=== PATIENT | female | born 1950 | race Caucasian/White ===

== ENCOUNTER → 2017-02-20 | Outpatient (CLI) | payer OTHER ==
[2014-03-15 11:17] VITALS: BP 103/57
--- NOTE | 2017-02-21 15:29 | MG ---
HISTORY: SCREENING Comparison: January 31, 2015 and February 05, 2016 FINDINGS: Bilateral CC and MLO projections of the right and left breast were obtained. Scattered fibroglandul ar tissue is seen to be present without significant interval change. No suspicious architectural di stortion, mass or clustered microcalcifications can be observed to suggest malignancy. No skin thic kening or nipple retraction is appreciated. No pathological lymphadenopathy can be identified. Kash ign-appearing calcifications are noted within the right and left breast. IMPRESSION: NO RADIOGRAPHIC EVIDENCE OF MALIGNANCY. ACR CATEGORY 2 - benign findings. FOLLOW-UP EXAM 1 YEAR. Diagnostic CAD was utilized and reviewed. * 0 (ZERO) - ASSESSMENT INCOMPLETE; ADDITIONAL IMAGING IS NEEDED. * 1/1 (ONE) - NEGATIVE. * 2/II (TWO) - BENIGN FINDINGS. * 3/III (THREE) - PROBABLY BENIGN FINDING; SHORT INTERVAL FOLLOW-UP SUGGESTED. * 4/IV (FOUR) - SUSPICIOUS ABNORMALITY; BIOPSY SHOULD BE CONSIDERED. * 5/V (FIVE) - HIGHLY SUSPICIOUS OF MALIGNANCY; BIOPSY SHOULD BE PERFORMED. A NEGATIVE X-RAY REPORT SHOULD NOT DELAY BIOPSY IF A DOMINANT OR CLINICALLY SUSPICIOUS MASS IS PRESENT; 4 TO 8 PERCENT OF CANCERS ARE NOT IDENTIFIED BY X-RAY. A NEG ATIVE REPORT MAY REINFORCE THE CLINICAL IMPRESSION. ADENOSIS AND DENSE BREASTS MAY OBSCURE AN UNDER LYING NEOPLASM. Reported By:
== END ==
LOC: RAD 10:22
PROVIDERS: ATTEND Obstetrics & Gynecology Obstetrics
DX: Z12.31 Encounter for screening mammogram for malignant neoplasm of breast (principal)
CPT/HCPCS: 77067

== ENCOUNTER 2017-12-12 14:09 | Emergency (ER) | payer OTHER ==
[2017-12-12 14:15] VITALS: BP 188/82; BMI 46.7
[2017-12-12] MEDS ORDERED: TORADOL 60 MG VIAL IM ONE (15:02)
--- NOTE | 2017-12-12 15:02 | DR.EXTPAIN ---
HPI - Time seen Time seen: 14:45 - PCP Primary Care Physician: WOLF - HPI Comment HPI Comment: NO LOC. - Complaint/Symptoms Chief Complaint Doctor Comments: FELL, PAIN RT LOWER RIB, RT KNEE AND RT ELBOW. Chief Complaint:: PT C/O RT ELBOW, RT KNEE, AND RT RIB AREA PAIN S/P FALL. PT STATES SHE FELL COMING OUT OF A RESTURANT AND SHE TRIED TO CATCH HER FALL, BUT WAS UNABLE TO. - Nurses notes reviewed Nurses Notes Review: Yes - Source History Provided: Patient - Mode of arrival Mode of Arrival: Wheelchair - Timing Onset of Chief Complaint: 12/12/17 - Context History of: None - Associated signs and symptoms Associated Signs and Symptoms: Pain, Swelling, Bruising PMH - PMH Past Medical History: Yes Past Medical History: Diabetes, GERD, Hypertension, Sleep Apnea Past Medical History Comment: HERNIA Past Surgical History: Yes Surgical History: Cholecystectomy, Hysterectomy, Ortho Surgery, Other Past Surgical History Comment: TUBALIGATION - Family History History of Family Medical Conditions: No - Social History Does any household member use tobacco: No Alcohol Use: None Do you use any recreational Drugs:: No Lives With: Family Lives Where: Home - infectious screening In the last 2 months have you had wt loss of >10#?: NO Have you had fever, night sweats or hemotysis?: No Have you traveled outside the country in the last 6 months?: No Isolation: Standard ROS - Review of Systems Constitutional: No Symptoms Reported Eyes: No Symptoms Reported ENTM: No Symptoms Reported Respiratoy: No Symptoms Reported Cardiovascular: No Symptoms Reported Gastrointestinal/Abdominal: No Symptoms Reported Genitourinary: No Symptoms Reported Neurological: No Symptoms Reported Musculoskeletal: Right, Rib(s), Elbow, Knee Integumentary: Bruises Hematologic/Lymphatic: No Symptoms Reported Endocrine: No Symptoms Reported All Other Systems: Reviewed and Negative PE - Vital Signs Vitals: Temperature 97.6 F Pulse Rate 66 Respiratory Rate 20 Blood Pressure 188/82 O2 Sat by Pulse Oximetry 99 - General Limitations: No Limitations General Appearance: Alert - Head Head Exam: Normal Inspection - Eyes Eye exam: Normal Appearance - ENT ENT Exam: Normal External Ear Exam - Neck Neck Exam: Trachea Midline - Chest Chest Inspection: Symmetric Chest Wall Rise - Respiratory Respiratory Exam: Normal Lung Sounds Bilat, Chest Wall Tenderness (RT LOWER RIB TENDERNESS.) Respiratory Exam: Bilateral Clear to Auscultation - Cardiovascular Cardiovascular Exam: Regular Rate, Normal Rhythm, Normal Heart Sounds - Abdominal Exam Abdominal Exam: Normal Bowel Sounds, Soft. negative: Tenderness - Extremities Extremities Exam: Tenderness (TENDERNESS AND SWELLING RT KNEE AND RT ELBOW.) - Upper Extremities Elbow Exam: Tenderness, Swelling. negative: Full ROM (DECREASE ROM RT ELBOW.) - Lower Extremities Knee Exam: Tenderness, Swelling. negative: Full ROM (DECREASE ROM RT KNEE.) Neurovascular/Tendon Exam: Normal Capillary Refill Gait Exam: Observed and Normal, Observed & Limited by Pain - Back Back Exam: Normal Inspection - Neurological Neurological Exam: Alert, Oriented X3 - Psychiatric Psychiatric Exam: Normal Affect, Normal Mood - Skin Skin Exam: Erythema MDM - Differential Diagnosis Differential Diagnosis: Contusion, Fracture, Sprain Course - Treatment Treatment: SEE ORDERS. - Education/Counseling Education/Counseling: Patient, Education Educated On: Diagnosis, Needs for Follow Up ROR - XRAY XRAY Interpreted by: Radiologist XRAY Findings: REPORT DISCUSS WITH PATIENT. - Diagnosis Discharge Problem: Right knee sprain Qualifiers: Encounter type: initial encounter Involved ligament of knee: unspecified ligament Qualified Code(s): S83.91XA - Sprain of unspecified site of right knee , initial encounter Contusion of right elbow Qualifiers: Encounter type: initial encounter Qualified Code(s): S50.01XA - Contusion of right elbow, initial encounter Contusion of rib on right side Qualifiers: Encounter type: initial encounter Qualified Code(s): S20.211A - Contusion of right front wall of thorax, initial encounter - Discharge Plan Disposition: HOME, SELF-CARE Condition: Stable Prescriptions: Ketorolac Tromethamine [Toradol Tab] 10 mg PO Q8H PRN #15 tab PRN Reason: Pain - Follow ups/Referrals Follow ups/Referrals: VALENTIN BLOOM [Primary Care Provider] - 12/15/17 - Instructions Instructions: Knee Sprain, Adult, [id number], Elbow Contusion, [id number], Knee Sprain, Adult Additional Instructions: RETURN TO ED IF WORSE.
[2017-12-12] MEDS ORDERED: TORADOL 60 MG VIAL ONE (15:34)
--- NOTE | 2017-12-12 15:45 | RAD ---
HISTORY: Right rib pain after fall Study: Four views of the chest Comparison: None Findings: The lungs are clear without consolidation, effusion or pneumothorax. The cardiac and mediastinal con tours are within normal limits. No definite displaced rib fracture is identified. The bony thorax appears intact. IMPRESSION: 1. No rib fracture identified. 2. No acute cardiopulmonary abnormality. Reported By:
--- NOTE | 2017-12-12 15:46 | RAD ---
History: Fall. Right knee pain. Study: Ringing two views. Comparison: None. Findings: There is no evidence of acute fracture or dislocation. There is mild narrowing of the media l compartment. There is again soft tissue abdomen is identified. There is no evidence of significant joint effusion. IMPRESSION: No evidence of acute osseous injury to the right knee. Reported By:
--- NOTE | 2017-12-12 15:51 | RAD ---
HISTORY: Fall. Study: Right elbow two views Comparison: None. Findings: No acute cortical disruption or dislocation is identified. No significant joint space effusion can b e seen. The radial head is unremarkable in its appearance. IMPRESSION: 1. Negative exam. Reported By:
[2017-12-12] MEDS ORDERED: ADACEL TDaP IM ONE ×2 (15:59→16:14)
[2017-12-12] MEDS ORDERED: NEOSPORIN OINT ONE (16:26)
== END 2017-12-12 16:33 | disposition home or self-care (01) ==
LOC: ER 14:22
DX: S83.91XA Sprain of unspecified site of right knee, initial encounter (principal); S50.01XA Contusion of right elbow, initial encounter; S20.211A Contusion of right front wall of thorax, initial encounter; W19.XXXA Unspecified fall, initial encounter; Y92.511 Restaurant or cafe as the place of occurrence of the external cause
CPT/HCPCS: 71111; 73070; 73560; 90471; 90472; 96372; 99282; J1885

== ENCOUNTER 2023-04-25 09:54 | Observation (INO) ==
[2023-04-25] MEDS ORDERED: NS 1,000 ML IV 1,000 ML ONE ×2 (10:18→17:07)
[2023-04-25] MEDS ORDERED: ANCEF VIAL 1 GRAM ONE (10:18)
[2023-04-25] MEDS ORDERED: NS 100 ML IV 100 ML ONE ×2 (10:18→10:33)
[2023-04-25] MEDS ORDERED: ROCEPHIN VIAL 2 GRAMS ONE (10:33)
[2023-04-25] MEDS ORDERED: VANCOMYCIN IV *PREMIX 1 G/200 ML BAG 1 G/200 ML PIGGYBACK IV ONE ×2 (10:34→10:38)
[2023-04-25] MEDS ORDERED: ROCEPHIN VIAL 2 GRAMS 2 G in NS 100 ML IV 100 ML IV ONE (10:37)
--- NOTE | 2023-04-25 10:42 | RAD ---
EXAM:CHEST, 1 VIEWHISTORY:PRE-OP FOR RT SHOULDER SXCOMPARISON:None available.FINDINGS:The trachea is midline. The cardiac silhouette is unremarkable . The lungs are clear without focal infiltrate or effusion. The bony thorax is unremarkable.IMPRESSION:No acute cardiopulmonary disease.THIS IS AN ELECTRONICALLY VERIFIED FINAL REPORT04/25/2023 10:38 AM - Electronically signed by Victor Hugo Mack MD
[2023-04-25 10:52] LABS: BASOPHILS # (AUTO) 0.1 X10^3/uL (0.0-0.1); BASOPHILS % (AUTO) 1.1 % (0.2-1.0); EOSINOPHILS # (AUTO) 0.2 x10^3/uL (0.0-0.2); EOSINOPHILS % (AUTO) 3.9 % (0.9-2.9); HEMATOCRIT 35.8 % (36.0-47.0); HEMOGLOBIN 11.9 g/dL (12.0-16.0); LYMPHOCYTES # (AUTO) 1.3 X10^3/uL (1.3-2.9); LYMPHOCYTES % (AUTO) 26.3 % (21.0-51.0); MEAN CORPUSCULAR HEMOGLOBIN 28.8 pg (27.0-34.0); MEAN CORPUSCULAR HGB CONC 33.2 g/dL (33.0-35.0); MEAN CORPUSCULAR VOLUME 86.7 fL (80.0-100.0); MEAN PLATELET VOLUME 7.2 fL (7.4-11.0); MONOCYTES # (AUTO) 0.3 x10^3/uL (0.3-0.8); MONOCYTES % (AUTO) 6.1 % (0.0-13.0); NEUTROPHILS # (AUTO) 3.1 x10^3/uL (2.2-4.8); NEUTROPHILS % (AUTO) 62.6 % (42.0-75.0); PLATELET COUNT 152 X10^3/uL (150.0-450.0); RED BLOOD COUNT 4.12 X10^6/uL (3.5-5.4); RED CELL DISTRIBUTION WIDTH 14.8 % (11.6-16.5); WHITE BLOOD COUNT 4.9 X10^3/uL (3.6-10.0)
[2023-04-25 11:02] VITALS: BMI 37.5
[2023-04-25 11:04] LABS: ALANINE AMINOTRANSFERASE 19 Units/L (12-78); ALBUMIN 2.7 g/dL (3.4-5.0); ALKALINE PHOSPHATASE 118 Units/L (46-116); ASPARTATE AMINO TRANSFERASE 34 Units/L (15-37); BLOOD UREA NITROGEN 10 mg/dL (7-18); CALCIUM 8.5 mg/dL (8.5-10.1); CARBON DIOXIDE 30.1 mmol/L (21-32); CHLORIDE 105 mmol/L (98-107); COR CA(FOR HYPOALB) 9.5 mg/dL (8.5-10.1); CREATININE 0.69 mg/dL (0.55-1.02); GLUCOSE 98 mg/dL (65-99); POTASSIUM 4.4 mmol/L (3.5-5.1); SODIUM 140 mmol/L (136-145); TOTAL PROTEIN 6.3 g/dL (6.4-8.2); eGFR NON BLACK RACES > 60 (>60)
[2023-04-25] MEDS ORDERED: VANCOMYCIN HCL ONE (11:53)
[2023-04-25] MEDS ORDERED: MARCAINE 0.25% INJ ONE (11:53)
[2023-04-25] MEDS ORDERED: HYDROGEN PEROXIDE 3% ONE ×2 (11:54→15:08)
[2023-04-25] MEDS ORDERED: VERSED ONE (12:33)
[2023-04-25] MEDS ORDERED: FENTANYL VIAL INJ 250 mcg ONE (12:33)
[2023-04-25] MEDS ORDERED: XYLOCAINE 2 % (PLAIN) ONE (12:34)
[2023-04-25] MEDS ORDERED: PEPCID 20 MG VIAL ONE (12:34)
[2023-04-25] MEDS ORDERED: BRIDION ONE (12:34)
[2023-04-25] MEDS ORDERED: ZOFRAN INJ 4 MG VIAL ONE (12:34)
[2023-04-25] MEDS ORDERED: DIPRIVAN VIAL 20 ML ONE (12:34)
[2023-04-25] MEDS ORDERED: DECADRON INJ ONE (12:34)
[2023-04-25] MEDS ORDERED: QUELICIN (OR ANECTINE) ONE (12:36)
[2023-04-25] MEDS ORDERED: ZEMURON 100 MG VIAL ONE ×2 (12:36→15:32)
[2023-04-25] MEDS ORDERED: SUPRANE ONE (13:15)
--- NOTE | 2023-04-25 13:17 | EKG ---
Test Reason : PRE OP Blood Pressure : */* mmHG Vent. Rate : 71 BPM Atrial Rate : 71 BPM P-R Int : 180 ms QRS Dur : 72 ms QT Int : 396 ms P-R-T Axes : 5 6 48 degrees QTc Int : 430 ms Normal sinus rhythm Normal ECG No previous ECGs available Referred By: Confirmed By:
[2023-04-25] MEDS ORDERED: TRANEXAMIC ACID IV ONE (14:10)
[2023-04-25] MEDS ORDERED: DILAUDID INJ ONE ×2 (14:24→17:43)
[2023-04-25] MEDS ORDERED: PRECEDEX INJ VIAL IVP ONE (14:26)
[2023-04-25] MEDS ORDERED: EPHEDRINE SULFATE INJ ONE (15:57)
[2023-04-25] MEDS ORDERED: BENADRYL INJ 50 MG VIAL IVP PRN (17:14)
[2023-04-25] MEDS ORDERED: BARHEMSYS INJ IVP PRN (17:14)
[2023-04-25] MEDS ORDERED: REGLAN INJ 10 MG VIAL IVP PRN (17:14)
[2023-04-25] MEDS ORDERED: ZOFRAN INJ 4 MG VIAL IVP PRN ×2 (17:14→17:16)
[2023-04-25] MEDS ORDERED: DILAUDID INJ IVP PRN (17:16)
[2023-04-25] MEDS ORDERED: MOTRIN TAB 800 MG PO PRN (17:16)
[2023-04-25] MEDS ORDERED: TYLENOL 500 MG TAB EXTRA STRENGTH PO PRN (17:16)
[2023-04-25] MEDS: DILAUDID INJ IVP PRN ×2 (17:38→17:43)
[2023-04-25 17:44] LABS: HEMATOCRIT 33.4 % (36.0-47.0); HEMOGLOBIN 11.2 g/dL (12.0-16.0)
[2023-04-25] MEDS ORDERED: LYRICA CAP 75 mg PO PRN (17:49)
--- NOTE | 2023-04-25 17:52 | DR.OPNOTE ---
OP NOTE Pre-Op Diagnosis: Right proximal humerus fracture Post-Op Diagnosis: Same Procedure Date Date Of Procedure: 04/25/23 Procedure: Right RSA Type of Anesthesia: General Anesthetic w/ETT Findings: Displaced three part proximal humerus fracture Specimen/Pathology: None EBL: 400 cc Drains/Tubes Placed: None Hardware: See Operative Report Cultures: None Complications:: None Needle/Sponge Count:: Correct Disposition/Condition: Pt. tolerated procedure without difficulty. Extubated in the OR and taken to PACU in stable condition.
[2023-04-25] MEDS: ROXICODONE TAB 5 MG PO PRN (20:45)
[2023-04-25] MEDS ORDERED: MIRALAX POWDER (1 DOSE 17 G) PO SCH (21:00)
[2023-04-25] MEDS ORDERED: REQUIP PO SCH (21:00)
[2023-04-25] MEDS: NS 1,000 ML IV 1,000 ML IV SCH (21:35)
--- NOTE | 2023-04-26 01:24 | RAD ---
HISTORYPost op shoulderSTUDYSHOULDER, RIGHTCOMPARISONNoneFINDINGSReverse shoulder arthroplasty. There is a fracture of the proximal bony humerus with fragment spanning 1.6 centimeters. Overlying soft tissue swelling and subcutaneous gas consistent with recent postoperative state.IMPRESSIONProximal humerus fractureElectronically signed by: Jamal Hanks (Apr 26, 2023 01:23:09)
[2023-04-26 06:46] LABS: HEMOGLOBIN 10.3 g/dL (12.0-16.0)
[2023-04-26 08:33] VITALS: TEMP 97.9
[2023-04-26] MEDS ORDERED: LASIX PO SCH (09:00)
[2023-04-26] MEDS ORDERED: ZYLOPRIM PO SCH (09:00)
[2023-04-26] MEDS ORDERED: KLOR-CON PO SCH (09:00)
[2023-04-26] MEDS ORDERED: ZOLOFT PO SCH (09:00)
[2023-04-26] MEDS ORDERED: SYNTHROID 25 mcg TAB PO SCH (09:00)
[2023-04-26] MEDS ORDERED: ZOLOFT ONE (09:29)
[2023-04-26] MEDS: NS 1,000 ML IV 1,000 ML IV SCH (10:16)
[2023-04-26] MEDS: ROXICODONE TAB 5 MG PO PRN (10:20)
[2023-04-26 12:09] VITALS: BP 140/74; PULSE 79; RESP 20; O2SAT 100
== END 2023-04-26 13:36 | disposition home or self-care (01) ==
LOC: INTOOBSV 09:54 → MED/SURG 09:54 → OBSVTOIN 09:54
PROVIDERS: ADMIT Obstetrics & Gynecology Obstetrics; ATTEND Obstetrics & Gynecology Obstetrics

== ENCOUNTER 2024-11-16 14:03 | Observation (INO) ==
--- NOTE | 2024-11-16 14:20 | EKG ---
Test Reason : chest pain Blood Pressure : */* mmHG Vent. Rate : 66 BPM Atrial Rate : 66 BPM P-R Int : 166 ms QRS Dur : 140 ms QT Int : 452 ms P-R-T Axes : 7 -21 85 degrees QTc Int : 473 ms Normal sinus rhythm Left bundle branch block -new Abnormal ECG When compared with ECG of 25-APR-2023 10:42, QRS duration has increased T wave inversion now evident in Lateral leads Confirmed by Chico Storm MD ([id number]) on 11/17/2024 7:35:40 AM Referred By: Confirmed By: Chico Storm MD
[2024-11-16 15:10] LABS: BASOPHILS % (AUTO) 0.7 % (0.2-1.0); EOSINOPHILS # (AUTO) 0.1 x10^3/uL (0.0-0.2); EOSINOPHILS % (AUTO) 2.5 % (0.9-2.9); HEMOGLOBIN 13.5 g/dL (12.0-16.0); LYMPHOCYTES # (AUTO) 1.5 X10^3/uL (1.3-2.9); LYMPHOCYTES % (AUTO) 28.1 % (21.0-51.0); MEAN CORPUSCULAR HEMOGLOBIN 30.3 pg (27.0-34.0); MEAN CORPUSCULAR HGB CONC 33.9 g/dL (33.0-35.0); MEAN CORPUSCULAR VOLUME 89.4 fL (80.0-100.0); MONOCYTES # (AUTO) 0.4 x10^3/uL (0.3-0.8); MONOCYTES % (AUTO) 6.8 % (0.0-13.0); NEUTROPHILS # (AUTO) 3.3 x10^3/uL (2.2-4.8); NEUTROPHILS % (AUTO) 61.9 % (42.0-75.0); PLATELET COUNT 147 X10^3/uL (150.0-450.0); RED BLOOD COUNT 4.47 X10^6/uL (3.5-5.4); RED CELL DISTRIBUTION WIDTH 14.3 % (11.6-16.5); WHITE BLOOD COUNT 5.3 X10^3/uL (3.6-10.0)
[2024-11-16 15:17] LABS: INR 1.04 (0.8-1.3)
[2024-11-16 15:30] LABS: ALANINE AMINOTRANSFERASE 22 Units/L (12-78); ALBUMIN 3.2 g/dL (3.4-5.0); ALKALINE PHOSPHATASE 117 Units/L (46-116); ASPARTATE AMINO TRANSFERASE 15 Units/L (15-37); BLOOD UREA NITROGEN 13 mg/dL (7-18); CALCIUM 9.1 mg/dL (8.5-10.1); CARBON DIOXIDE 33.1 mmol/L (21-32); CHLORIDE 105 mmol/L (98-107); COR CA(FOR HYPOALB) 9.7 mg/dL (8.5-10.1); CREATINE KINASE 34 Units/L (26-192); CREATININE 0.82 mg/dL (0.55-1.02); GLUCOSE 99 mg/dL (65-99); MAGNESIUM 1.9 mg/dL (2.0-2.9); POTASSIUM 3.9 mmol/L (3.5-5.1); SODIUM 143 mmol/L (136-145); TOTAL PROTEIN 6.7 g/dL (6.4-8.2); eGFR NON BLACK RACES > 60 (>60)
--- NOTE | 2024-11-16 18:45 | DR.CP ---
HPI Time Seen Time Seen by Provider: 11/16/24 14:49 PCP Primary Care Physician: Dr.Jason Bloom Complaint Chief Complaint Doctor Comments: 74 yo F, hx of HTN, no hx of CAD, c/o 10h of dyspnea and chest tightness. pt states that earlier this morning around 0400 she woke up in sweats, very dizzy and nauseated along with SOB, tightness in her chest, and a headache. She did throw up shortly after getting up to the bathroom. she is currently feeling dizzy with periods of tightness in her chest. Denies other complaints. Chief Complaint:: Chest pain, dyspnea COVID-19 Coronavirus risk:travel/contact w/high risk person: No Has patient experienced Coronavirus symptoms: No Source History Provided: Patient Mode of Arrival Mode of Arrival: Ambulatory Timing Onset of Chief Complaint: 11/16/24 PMH PMH Past Medical History: Yes Past Medical History: Arthritis, Gout, Hypertension and Hypothyroidism Past Medical History Comment: left BBB Past Surgical History: Yes Surgical History: Cholecystectomy, Hysterectomy, Ortho Surgery, Weight Loss S urgery and Other Past Surgical History Comment: cyst removal under both arms, heart cath x3, cochlea implant x2, right shoulder replacement Family History History of Family Medical Conditions: Yes Family Medical History: Diabetes Mellitus, Cancer, [place] and Hypertension Social History Does patient currently use any type of tobacco product: No Have you used tobacco products in the last 12 months: No Type of Tobacco Use: None Alcohol Use: None Do you use any recreational Drugs:: No Lives With: Alone Lives Where: Home Travel Risk Coronavirus risk:travel/contact w/high risk person: No Has patient experienced Coronavirus symptoms: No Infectious screening Have you traveled outside the country in the last 6 months?: No Isolation: Standard ROS Review of Systems Respiratoy: Short of Breath Cardiovascular: Chest Pain All Other Systems: Reviewed and Negative PE Vitals Vitals: Vital Signs Temperature 97.9 F Pulse Rate 69 Pulse Rate 74 Pulse Rate 69 Pulse Rate 71 Pulse Rate 59 Pulse Rate 67 Pulse Rate 60 Pulse Rate 60 Pulse Rate 61 Pulse Rate 64 Pulse Rate 67 Pulse Rate 62 Pulse Rate 63 Pulse Rate 61 Pulse Rate 61 Pulse Rate 61 Pulse Rate 67 Pulse Rate 65 Pulse Rate 62 Pulse Rate 65 Pulse Rate 66 Respiratory Rate 16 Respiratory Rate 42 Respiratory Rate 27 Respiratory Rate 44 Respiratory Rate 17 Respiratory Rate 16 Respiratory Rate 19 Respiratory Rate 16 Respiratory Rate 21 Respiratory Rate 17 Respiratory Rate 18 Respiratory Rate 17 Respiratory Rate 16 Respiratory Rate 15 Respiratory Rate 14 Respiratory Rate 14 Respiratory Rate 16 Respiratory Rate 15 Respiratory Rate 17 Respiratory Rate 14 Respiratory Rate 18 Blood Pressure 156/70 Blood Pressure 193/74 Blood Pressure 168/80 Blood Pressure 153/71 Blood Pressure 147/69 Blood Pressure 170/76 Blood Pressure 158/72 Blood Pressure 173/78 Blood Pressure 170/75 Blood Pressure 145/71 O2 Sat by Pulse Oximetry 97 O2 Sat by Pulse Oximetry 95 O2 Sat by Pulse Oximetry 97 O2 Sat by Pulse Oximetry 98 O2 Sat by Pulse Oximetry 98 O2 Sat by Pulse Oximetry 100 O2 Sat by Pulse Oximetry 96 O2 Sat by Pulse Oximetry 98 O2 Sat by Pulse Oximetry 98 O2 Sat by Pulse Oximetry 97 O2 Sat by Pulse Oximetry 97 O2 Sat by Pulse Oximetry 95 O2 Sat by Pulse Oximetry 93 O2 Sat by Pulse Oximetry 97 O2 Sat by Pulse Oximetry 96 O2 Sat by Pulse Oximetry 98 O2 Sat by Pulse Oximetry 98 O2 Sat by Pulse Oximetry 98 O2 Sat by Pulse Oximetry 98 O2 Sat by Pulse Oximetry 98 O2 Sat by Pulse Oximetry 95 General Limitations: No Limitations General Appearance: Alert and In No Apparent Distress Head Head Exam: Normal Inspection Eyes Eye exam: Normal Appearance ENT ENT Exam: Normal Exam Chest Chest Inspection: Normal Inspection Respiratory Respiratory Exam: Normal Lung Sounds Bilat Cardiovascular Cardiovascular Exam: Regular Rate and Normal Rhythm Pulse: Normal Edema: Normal Abdominal Exam Abdominal Exam: Normal Inspection, Normal Bowel Sounds and Soft Extremities Extremities Exam: Normal Inspection Back Back Exam: Normal Inspection Neurologic Neurological Exam: Alert and Oriented X3 Psychiatric Psychiatric Exam: Normal Affect and Normal Mood Skin Skin Exam: Warm, Dry, Intact and Normal Color ROR Labs Reviewed Laboratory Results Reviewed?: Yes 11/16/24 15:00 11/16/24 15:00 Laboratory: WBC 5.3 X10^3/uL (3.6-10.0) 11/16/24 15:00 RBC 4.47 X10^6/uL (3.5-5.4) 11/16/24 15:00 Hgb 13.5 g/dL (12.0-16.0) 11/16/24 15:00 Hct 40.0 % (36.0-47.0) 11/16/24 15:00 MCV 89.4 fL (80.0-100.0) 11/16/24 15:00 MCH 30.3 pg (27.0-34.0) 11/16/24 15:00 MCHC 33.9 g/dL (33.0-35.0) 11/16/24 15:00 RDW 14.3 % (11.6-16.5) 11/16/24 15:00 Plt Count 147 X10^3/uL (150.0-450.0) L 11/16/24 15:00 MPV 7.0 fL (7.4-11.0) L 11/16/24 15:00 Neut % (Auto) 61.9 % (42.0-75.0) 11/16/24 15:00 Lymph % (Auto) 28.1 % (21.0-51.0) 11/16/24 15:00 [place] % (Auto) 6.8 % (0.0-13.0) 11/16/24 15:00 Eos % (Auto) 2.5 % (0.9-2.9) 11/16/24 15:00 Baso % (Auto) 0.7 % (0.2-1.0) 11/16/24 15:00 Neut # (Auto) 3.3 x10^3/uL (2.2-4.8) 11/16/24 15:00 Lymph # (Auto) 1.5 X10^3/uL (1.3-2.9) 11/16/24 15:00 [place] # (Auto) 0.4 x10^3/uL (0.3-0.8) 11/16/24 15:00 Eos # (Auto) 0.1 x10^3/uL (0.0-0.2) 11/16/24 15:00 Baso # (Auto) 0.0 X10^3/uL (0.0-0.1) 11/16/24 15:00 Absolute Nucleated RBC 0.2 /100WBC 11/16/24 15:00 PT 13.4 SECONDS (11.8-14.3) 11/16/24 15:00 INR Target Range - 11/16/24 15:00 INR 1.04 (0.8-1.3) 11/16/24 15:00 APTT 27.9 SECONDS (22.9-36.5) 11/16/24 15:00 PTT Comment - 11/16/24 15:00 Sodium 143 mmol/L (136-145) 11/16/24 15:00 Corrected Sodium TNP 11/16/24 15:00 Potassium 3.9 mmol/L (3.5-5.1) 11/16/24 15:00 Chloride 105 mmol/L (98-107) 11/16/24 15:00 Carbon Dioxide 33.1 mmol/L (21-32) H 11/16/24 15:00 BUN 13 mg/dL (7-18) 11/16/24 15:00 Creatinine 0.82 mg/dL (0.55-1.02) 11/16/24 15:00 Est GFR (MDRD) Af Amer > 60 (>60) 11/16/24 15:00 Est GFR (MDRD) Non-Af > 60 (>60) 11/16/24 15:00 Glucose 99 mg/dL (65-99) 11/16/24 15:00 Calcium 9.1 mg/dL (8.5-10.1) 11/16/24 15:00 Corrected Calcium 9.7 mg/dL (8.5-10.1) 11/16/24 15:00 Magnesium 1.9 mg/dL (2.0-2.9) L 11/16/24 15:00 Total Bilirubin 0.50 mg/dL (0.2-1.0) 11/16/24 15:00 AST 15 Units/L (15-37) 11/16/24 15:00 ALT 22 Units/L (12-78) 11/16/24 15:00 Alkaline Phosphatase 117 Units/L (46-116) H 11/16/24 15:00 Creatine Kinase 34 Units/L (26-192) 11/16/24 15:00 Troponin I High Sens 11.2 ng/L (4.0-60.0) 11/16/24 15:52 B-Natriuretic Peptide 164 pg/mL (0-79) H 11/16/24 15:00 Total Protein 6.7 g/dL (6.4-8.2) 11/16/24 15:00 Albumin 3.2 g/dL (3.4-5.0) L 11/16/24 15:00 Globulin 3.5 g/dL (2.5-4.5) 11/16/24 15:00 Albumin/Globulin Ratio 0.9 Ratio (1.1-2.1) L 11/16/24 15:00 Opioid Opioid Risk Tool Age (Du box if 16-45): No History of Preadolescent Sexual Abuse: No Total: 0 Total Score Risk Category: Low Risk Copyright: [facility] predicting aberrant behaviors Discharge Plan Diagnosis Discharge Problem: Chest pain, New onset left bundle branch block (LBBB), New onset of congestive heart failure Discharge Plan Patient Disposition: ADMITTED INPATIENT Condition: Stable Prescriptions: No Action hydralazine 50 mg tablet 50 mg PO BID Qty: 180 3RF allopurinol 300 mg tablet 300 mg PO QDAY potassium chloride 10 mEq tablet extended release 10 meq PO QDAY omeprazole 40 mg capsule,delayed release(DR/EC) 40 mg PO QDAY furosemide 20 mg tablet 20 mg PO QDAY cyanocobalamin (vitamin B-12) 1,000 mcg/mL solution 1,000 mcg IM QMONTH levothyroxine 25 mcg tablet 25 mcg PO QDAY ropinirole 0.5 mg tablet 0.5 mg PO BID losartan 100 mg tablet 100 mg PO QDAY Qty: 90 3RF amlodipine 10 mg tablet 10 mg PO QDAY Qty: 90 3RF Health Concerns: Post Hospitalization: new medications and changes needed to prevent readmission or further decline. Pt educated and given instructions on all concerns. Plan of Treatment: Continue with present treatment and follow up plan. Pt is to keep follow up appointment as instructed and take medications as ordered. Orders to Discharge Patient Discharge Orders: Transfer (Routine); Ordered 11/16/24 Ordered By: Paco Rose Follow ups/Referrals Follow ups/Referrals: VALENTIN BLOOM [Primary Care Provider] - 3 days Instructions Stand Alone Forms: Find Help Web Site, Post Hospital Follow Up Care
[2024-11-16] MEDS ORDERED: PATIENT'S HOME MEDICATION (Hydralazine 50 mg tablet) PO SCH (21:00)
[2024-11-16] MEDS ORDERED: ROPINIROLE 0.5 MG PO SCH (21:00)
[2024-11-16 23:30] VITALS: BMI 41.7
[2024-11-17 03:07] LABS: BASOPHILS % (AUTO) 0.7 % (0.2-1.0); EOSINOPHILS # (AUTO) 0.2 x10^3/uL (0.0-0.2); HEMATOCRIT 36.4 % (36.0-47.0); HEMOGLOBIN 12.1 g/dL (12.0-16.0); LYMPHOCYTES # (AUTO) 1.9 X10^3/uL (1.3-2.9); LYMPHOCYTES % (AUTO) 38.6 % (21.0-51.0); MEAN CORPUSCULAR HEMOGLOBIN 29.8 pg (27.0-34.0); MEAN CORPUSCULAR HGB CONC 33.4 g/dL (33.0-35.0); MEAN CORPUSCULAR VOLUME 89.2 fL (80.0-100.0); MEAN PLATELET VOLUME 7.3 fL (7.4-11.0); MONOCYTES # (AUTO) 0.4 x10^3/uL (0.3-0.8); NEUTROPHILS # (AUTO) 2.5 x10^3/uL (2.2-4.8); NEUTROPHILS % (AUTO) 49.7 % (42.0-75.0); PLATELET COUNT 136 X10^3/uL (150.0-450.0); RED BLOOD COUNT 4.08 X10^6/uL (3.5-5.4); RED CELL DISTRIBUTION WIDTH 14.3 % (11.6-16.5)
[2024-11-17 03:11] LABS: INR 1.04 (0.8-1.3)
[2024-11-17 03:25] LABS: ALANINE AMINOTRANSFERASE 20 Units/L (12-78); ALBUMIN 2.7 g/dL (3.4-5.0); ALKALINE PHOSPHATASE 107 Units/L (46-116); ASPARTATE AMINO TRANSFERASE 14 Units/L (15-37); BLOOD UREA NITROGEN 14 mg/dL (7-18); CALCIUM 8.7 mg/dL (8.5-10.1); CARBON DIOXIDE 32.6 mmol/L (21-32); CHLORIDE 107 mmol/L (98-107); CHOLESTEROL 182 mg/dL (0-200); COR CA(FOR HYPOALB) 9.7 mg/dL (8.5-10.1); CREATININE 0.92 mg/dL (0.55-1.02); GLUCOSE 104 mg/dL (65-99); HDL CHOLESTEROL 45 mg/dL (40-60); POTASSIUM 4.2 mmol/L (3.5-5.1); SODIUM 142 mmol/L (136-145); TRIGLYCERIDES 119 mg/dL (0-150); eGFR NON BLACK RACES > 60 (>60)
--- NOTE | 2024-11-17 03:45 | RAD ---
PROCEDURE: Chest X-ray 2 Views.HISTORY: Shortness of Breath; .TECHNIQUE: PA and lateral views.COMPARISON: 04/25/2023.TECHNICAL QUALITY: Satisfactory.FINDINGS:Heart size upper limits of normal and increased since previous study.Mediastinum and hilar regions show no masses or lymphadenopathy.Normal central vascularity.No pulmonary consolidation, masses, pleural fluid, or pneumothorax.No acute bony abnormality.IMPRESSION:Heart size upper limits of normal with no other evidence of active disease.THIS IS AN ELECTRONICALLY VERIFIED FINAL REPORT11/17/2024 3:42 AM - Electronically signed by Stevenson Valle MD
--- NOTE | 2024-11-17 05:31 | EKG ---
Test Reason : cp Blood Pressure : */* mmHG Vent. Rate : 58 BPM Atrial Rate : 58 BPM P-R Int : 176 ms QRS Dur : 140 ms QT Int : 488 ms P-R-T Axes : 53 -26 88 degrees QTc Int : 479 ms Sinus bradycardia Left bundle branch block Abnormal ECG When compared with ECG of 16-NOV-2024 14:17, (Unconfirmed) No significant change was found Confirmed by Chico Storm MD ([id number]) on 11/17/2024 7:37:23 AM Referred By: Confirmed By: Chico Storm MD
--- NOTE | 2024-11-17 08:28 | RAD ---
EXAM:Portable chestHISTORY:Congestive heart failureCOMPARISON:11/16/2024FINDINGS:Art remains upper limits normal in size. Verito are normal. Aorta is calcified. No congestive heart failure or acute alveolar infiltrates identified. No pleural effusion or pneumothorax identified. Bony thorax is unremarkable with the exception of a right shoulder arthroplasty.IMPRESSION:Heart upper limits normal in size, no congestive heart failure identifiedNo acute infiltratesTHIS IS AN ELECTRONICALLY VERIFIED FINAL REPORT11/17/2024 8:24 AM - Electronically signed by Justin Bartlett MD
[2024-11-17] MEDS ORDERED: PATIENT'S HOME MEDICATION (Losartan 100 mg tablet) PO SCH (09:00)
[2024-11-17] MEDS ORDERED: PATIENT'S HOME MEDICATION (Omeprazole 40 mg capsule,delayed release(DR/EC)) PO SCH (09:00)
[2024-11-17] MEDS: PriLOSEC PO SCH (09:26)
[2024-11-17] MEDS: NORVASC TAB 10 MG PO SCH (09:27)
[2024-11-17] MEDS: LASIX PO SCH (09:27)
[2024-11-17] MEDS: COZAAR PO SCH (09:27)
[2024-11-17] MEDS: SYNTHROID 25 mcg TAB PO SCH (09:28)
[2024-11-17] MEDS: REQUIP PO SCH (09:28)
[2024-11-17] MEDS: APRESOLINE TAB 25 MG PO SCH (09:28)
[2024-11-17] MEDS: LOVENOX INJ 40 MG SYR SC SCH (10:40)
[2024-11-17 14:58] VITALS: BP 136/67; PULSE 69; RESP 19; TEMP 97.7; O2SAT 99
== END 2024-11-17 14:15 | disposition home or self-care (01) ==
LOC: MED/SURG 14:03 → ER 14:03 → MED/SURG 20:20
PROVIDERS: ADMIT Internal Medicine; ATTEND Obstetrics & Gynecology Obstetrics
DX: R00.1 Bradycardia, unspecified; H69.80 Other specified disorders of Eustachian tube, unspecified ear; I10 Essential (primary) hypertension; I44.7 Left bundle-branch block, unspecified; R51.9 Headache, unspecified; F41.0 Panic disorder [episodic paroxysmal anxiety]; R06.02 Shortness of breath; M94.0 Chondrocostal junction syndrome [Tietze]; R26.81 Unsteadiness on feet; I25.10 Atherosclerotic heart disease of native coronary artery without angina pectoris; R07.89 Other chest pain; R94.31 Abnormal electrocardiogram [ECG] [EKG]; E03.8 Other specified hypothyroidism; M62.81 Muscle weakness (generalized); Z65.8 Other specified problems related to psychosocial circumstances; E83.42 Hypomagnesemia; R42 Dizziness and giddiness